=== PATIENT | female | born 1950 | race Caucasian/White ===

== ENCOUNTER 2025-02-10 11:25 | Emergency (ER) | payer OTHER ==
[2025-02-10] MEDS ORDERED: Ondansetron PF 4 MG/2 ML Vial ONE (12:07)
[2025-02-10] MEDS ORDERED: Iopamidol-370 76% 500 ML MDV (1 ML CHARGE) ONE (12:08)
[2025-02-10 12:34] LABS: Actual Bicarbonate (HCO3v) 26.7 mEq/L (22-28); Base Excess 1.4 mEq/L (-2.0 to +3.0); Calcium, Ionized (venous) 1.08 mmol/L (1.16-1.32); Chloride (VBG) 103 mmol/L (98-106); Hematocrit-VBG 46 % (36.0-47.0); Hemoglobin (Hb) 15.6 g/dL (11.7-16.1); Potassium (VBG) 4.58 mmol/L (3.70-5.30); Sodium 140 mmol/L (133-146)
[2025-02-10 12:39] LABS: #Basophils 0.09 10x3/uL (0.0-0.2); #Eosinophils 0.03 10x3/uL (0.0-0.7); #Monocytes 1.15 10x3/uL (0.11-0.59); #Neutrophils 3.84 10x3/uL (1.40-6.50); %Basophils 1.0 % (0.0-1.0); %Eosinophils 0.3 % (0.0-10.0); %Lymphocytes 43.3 % (21.0-51.0); %Monocytes 12.6 % (0.0-10.0); %Neutrophils 42.0 % (42.0-75.0); Hematocrit 42.9 % (36.0-47.0); Hemoglobin 14.2 g/dL (12.0-16.0); Mean Corpuscular Hemoglobin 30.0 pg (27.0-31.0); Mean Corpuscular Volume 90.5 fL (78.0-98.0); Platelet Count 303 10x3/uL (130-400); Red Blood Cell (RBC) Count 4.74 mill/uL (4.20-5.40); White Blood Cell (WBC) Count 9.14 10x3/uL (4.8-10.8)
[2025-02-10 12:54] LABS: INR-International Normal Ratio 1.1; Prothrombin Time 14.0 sec (12.0-14.7)
[2025-02-10 12:55] LABS: PTT 24.9 sec (22.9-36.1)
[2025-02-10 12:57] LABS: Bacteria/HPF None Seen HPF (None Seen); CAUTI Indications for Culture Acute Hematuria; Glucose, Urine (Dipstick) Normal (Negative); Leukocyte 25 Leu/uL (Negative); Protein, Urine (Dipstick) 30 mg/dL (Neg-Trace); Specific Gravity, Urine 1.029 (1.002-1.036)
[2025-02-10 13:01] LABS: Acetaminophen Less than 10 mcg/mL (Less than 10); Lipase 24 U/L (8-78); Magnesium 2.2 mg/dL (1.6-2.6); Salicylate Less than 8.0 mg/dL (Less than 8.0)
[2025-02-10 13:03] LABS: ALT (SGPT) 977 U/L (Less than 34); AST (SGOT) 837 U/L (11-34); Albumin 3.2 g/dL (3.1-4.5); Alkaline Phosphatase 235 U/L (40-110); Anion Gap 17 mmol/L (10-20); BUN (Urea Nitrogen) 15 mg/dL (9.8-20.1); Bilirubin, Total 11.6 mg/dL (0.3-1.2); CK (CPK) 11 U/L (29-168); Calc. Creatinine Clearance 0 mL/min (70-130); Calcium 9.0 mg/dL (7.8-10.44); Carbon Dioxide 24 mmol/L (23-31); Chloride 102 mmol/L (98-107); Globulin 3.7 g/dL (2.4-3.5); Glucose 97 mg/dL (83-110); Potassium 4.0 mmol/L (3.5-5.1); Sodium 139 mmol/L (136-145)
[2025-02-10 13:09] LABS: Urine Culture Reflex No No
[2025-02-10 13:10] LABS: Cocaine Metabolite Screen Negative (Negative); THC/Cannabinoid Screen Negative (Negative); Tricyclic Screen Negative (Negative)
[2025-02-10 13:21] LABS: Hep A IgM AB NONREACTIVE (NonReactive); Hep A IgM S/CO 0.67 S/CO (0-0.79); Hep B Core IgM Index 0.09 S/CO (0-0.79); Hep B Surf Ag NONREACTIVE S/CO (NonReactive); Hep C IgG Ab NONREACTIVE S/CO (NonReactive); Hep C Index 0.06 S/CO (0-0.79)
== END 2025-02-10 19:31 | disposition short-term general hospital (02) ==
LOC: ERS 11:25
DX: K75.9 Inflammatory liver disease, unspecified (principal); E80.6 Other disorders of bilirubin metabolism; K21.9 Gastro-esophageal reflux disease without esophagitis; F17.210 Nicotine dependence, cigarettes, uncomplicated; Z79.899 Other long term (current) drug therapy
CPT/HCPCS: 71045; 74177; 80053; 80074; 80306; 80307; 81001; 82248; 82550; 82805; 83605; 83690; 83735; 85025; 85610; 85730; 93005; 96374; 96375; 96376; 99285; J2270; J2272; J2405; Q9967